=== PATIENT | female | born 1940 | race Hispanic/Latino ===

== ENCOUNTER 2024-10-17 10:49 | Emergency (ER) | payer MEDICARE ==
[~2024-10-17] VITALS: Ht 149.9 cm; Wt 71.2 kg
[~2024-10-17 10:49] MED LIST: FOLIC ACID1 MG PO; HUMIRA40 MG/0.8; LEVOTHYROXINE112 MCG PO; METFORMIN HCL500 MG PO; METHOTREXATE2.5 MG PO; ONGLYZA5 MG PO; SERTRALINE HCL50 MG PO; TRAMADOL HCL100 MG PO; VITAMIN B-121000 MCG PO; VITAMIN B-650 MG PO; VITAMIN D400 UNIT PO
[2024-10-17 10:57] VITALS: PULSE 74; RESP 16; TEMP 97.7; O2SAT 100
== END 2024-10-17 12:05 | disposition home or self-care (01) ==
LOC: ER 10:52
DX: M79.672 Pain in left foot (principal); I10 Essential (primary) hypertension; E11.9 Type 2 diabetes mellitus without complications; M06.9 Rheumatoid arthritis, unspecified; R32 Unspecified urinary incontinence; G47.00 Insomnia, unspecified
CPT/HCPCS: 99282